=== PATIENT | female | born 1985 | race Hispanic/Latino ===

== ENCOUNTER 2019-06-19 10:22 | Emergency (ER) | payer SELFPAY ==
[~2019-06-19] VITALS: Ht 154.9 cm; Wt 81.8 kg
[~2019-06-19 10:22] MED LIST: CIPROFLOXACN500 MG PO; DOXYCYCL HYC100 MG PO; NO HOME MEDS; PYRIDIUM200 MG PO; TYLENOL # 31 TA1 PO; ULTRAM50 MG PO; UNKNOWN PAIN MED
[2019-06-19 11:15] LABS: URINE BLOOD DIPSTICK TRACE-INTACT (NEGATIVE); URINE COLOR YELLOW; URINE GLUCOSE - DIPSTICK NEGATIVE (NEGATIVE); URINE KETONE TRACE mg/dL (NEGATIVE); URINE LEUK ESTERASE NEGATIVE (NEGATIVE); URINE NITRITE - DIPSTICK NEGATIVE (Negative); URINE PH 5.5 (4.5-8.0); URINE PROTEIN - DIPSTICK TRACE mg/dL (NEG-TRACE); URINE SPECIFIC GRAVITY >=1.030; URINE UROBILINOGEN - DIPSTICK 0.2 E.U./dL (0.2)
[2019-06-19 11:18] LABS: HCG SERUM/URINE (NEG/POS) NEGATIVE (NEGATIVE)
[2019-06-19 11:23] LABS: URINE BILIRUBIN - DIPSTICK SMALL (NEGATIVE)
[2019-06-19 11:24] LABS: HEMATOCRIT 37.3 % (37.0-47.0); IMMATURE GRANULOCYTES 0.3 % (0.0-5.0); MEAN CELL VOLUME 91.2 fL CALC (80.0-100.0); MEAN CORPUSCULAR HGB 29.3 pG CALC (26.0-32.0); MEAN CORPUSCULAR HGB CONC 32.2 g/L CALC (32.0-36.0); NEUT# 8.35 thou/uL (2.00-7.15); RED BLOOD COUNT 4.09 mill/uL (4.20-5.60); RED CELL DISTRI WIDTH 12.1 % (11.5-15.5)
[2019-06-19 12:13] LABS: ALKALINE PHOSPHATASE 116 u/l (38-126); ANION GAP 14 (6-22 (CALC)); BILIRUBIN, TOTAL 0.7 mg/dL (0.0-1.4); BUN 14 mg/dL (7-17); BUN/CREATININE RATIO 33 (12-20 (CALC)); CARBON DIOXIDE 25 mmol/l (22-30); CHLORIDE 106 mmol/l (95-108); CREATININE 0.4 mg/dL (0.5-1.0); GFR > 60 ML/MIN (>=60 (CALC)); GFR FOR AFR.AMER. > 60 ML/MIN (>=60 (CALC)); LIPASE 32 u/l (23-300); POTASSIUM 3.7 mmol/l (3.5-5.1); SGOT/AST 37 u/l (14-36); SODIUM 141 mmol/l (137-146); TOTAL PROTEIN 8.8 g/dL (6.3-8.2)
[2019-06-19] MEDS ORDERED: LOMOTIL2.5 MG PO (14:20)
[2019-06-19 14:38] VITALS: BP 113/63
== END 2019-06-19 14:38 | disposition home or self-care (01) | DRG 392 ==
LOC: ED 10:22
DX: R19.7 Diarrhea, unspecified (principal); K62.89 Other specified diseases of anus and rectum; R11.0 Nausea
CPT/HCPCS: G0328

== ENCOUNTER 2019-06-22 13:17 | Emergency (ER) | payer SELFPAY ==
[~2019-06-22] VITALS: Ht 154.9 cm; Wt 75.0 kg
[~2019-06-22 13:17] MED LIST changes: +LOMOTIL2.5 MG PO
[2019-06-22] MEDS ORDERED: FLEXERIL5 MG PO (13:46)
[2019-06-22 15:23] LABS: URINE BILIRUBIN - DIPSTICK NEGATIVE (NEGATIVE); URINE BLOOD DIPSTICK LARGE (NEGATIVE); URINE COLOR RED; URINE GLUCOSE - DIPSTICK NEGATIVE (NEGATIVE); URINE KETONE NEGATIVE (NEGATIVE); URINE LEUK ESTERASE TRACE (NEGATIVE); URINE NITRITE - DIPSTICK NEGATIVE (Negative); URINE PH 7.5 (4.5-8.0); URINE PROTEIN - DIPSTICK 100 mg/dL (NEG-TRACE); URINE UROBILINOGEN - DIPSTICK 0.2 E.U./dL (0.2)
[2019-06-22 15:48] LABS: URINE SQUAMOUS EPITHELIAL CELL MODERATE EPI/hpf (0-FEW)
[2019-06-22] MEDS ORDERED: DIFLUCAN100 M1 PO (16:31)
[2019-06-22 16:35] VITALS: BP 113/75
== END 2019-06-22 16:45 | disposition home or self-care (01) | DRG 759 ==
LOC: ED 13:17
DX: B37.3 Candidiasis of vulva and vagina (principal)

== ENCOUNTER 2020-05-09 17:17 | Emergency (ER) | payer SELFPAY ==
[~2020-05-09] VITALS: Ht 154.9 cm; Wt 82.0 kg
[~2020-05-09 17:17] MED LIST changes: +DIFLUCAN100 M1 PO; +FLEXERIL5 MG PO
[2020-05-09 17:57] LABS: HEMATOCRIT 32.5 % (37.0-47.0); HEMOGLOBIN 10.4 g/dl (12.0-16.0); IMMATURE GRANULOCYTES 0.4 % (0.0-5.0); MEAN CELL VOLUME 89.5 fL CALC (80.0-100.0); MEAN CORPUSCULAR HGB 28.7 pG CALC (26.0-32.0); NEUT# 8.68 thou/uL (2.00-7.15); RED BLOOD COUNT 3.63 mill/uL (4.20-5.60)
[2020-05-09 17:59] LABS: URINE BILIRUBIN - DIPSTICK NEGATIVE (NEGATIVE); URINE BLOOD DIPSTICK NEGATIVE (NEGATIVE); URINE COLOR YELLOW; URINE GLUCOSE - DIPSTICK NEGATIVE (NEGATIVE); URINE KETONE NEGATIVE (NEGATIVE); URINE LEUK ESTERASE NEGATIVE (NEGATIVE); URINE NITRITE - DIPSTICK NEGATIVE (Negative); URINE PH 6.5 (4.5-8.0); URINE PROTEIN - DIPSTICK NEGATIVE (NEG-TRACE); URINE SPECIFIC GRAVITY <=1.005; URINE UROBILINOGEN - DIPSTICK 0.2 E.U./dL (0.2)
[2020-05-09 18:09] LABS: ALBUMIN 4.3 g/dL (3.2-5.0); ALKALINE PHOSPHATASE 135 u/l (38-126); ANION GAP 12 (6-22 (CALC)); BUN 5 mg/dL (7-17); BUN/CREATININE RATIO 13 (12-20 (CALC)); CARBON DIOXIDE 26 mmol/l (22-30); CHLORIDE 104 mmol/l (95-108); CREATININE 0.4 mg/dL (0.5-1.0); GFR > 60 ML/MIN (>=60 (CALC)); GFR FOR AFR.AMER. > 60 ML/MIN (>=60 (CALC)); LIPASE 58 u/l (23-300); POTASSIUM 3.9 mmol/l (3.5-5.1); SGOT/AST 24 u/l (14-36); SODIUM 138 mmol/l (137-146); TOTAL PROTEIN 7.6 g/dL (6.3-8.2)
[2020-05-09 18:10] LABS: BILIRUBIN, TOTAL 0.4 mg/dL (0.0-1.4)
[2020-05-09 19:10] VITALS: BP 122/70
[2020-05-09] MEDS ORDERED: CIPROFLOXACN500 MG PO (19:19)
[2020-05-09] MEDS ORDERED: METRONIDAZOL500 MG PO (19:19)
== END 2020-05-09 19:33 | disposition home or self-care (01) | DRG 392 ==
LOC: ED 17:17
DX: K57.32 Diverticulitis of large intestine without perforation or abscess without bleeding (principal)
CPT/HCPCS: Q9967

== ENCOUNTER 2021-06-17 07:00 | Emergency (ER) | payer SELFPAY ==
[~2021-06-17] VITALS: Ht 154.9 cm; Wt 70.0 kg
[~2021-06-17 07:00] MED LIST changes: +METRONIDAZOL500 MG PO
[2021-06-17 08:10] LABS: IMMATURE GRANULOCYTES 0.1 % (0.0-5.0); MEAN CORPUSCULAR HGB 29.9 pG CALC (26.0-32.0); MEAN CORPUSCULAR HGB CONC 32.4 g/dL CAL (32.0-36.0); NEUT# 5.04 thou/uL (2.00-7.15); RED BLOOD COUNT 4.02 mill/uL (4.20-5.60); RED CELL DISTRI WIDTH 12.5 % (11.5-15.5)
[2021-06-17 08:23] LABS: ALBUMIN 4.3 g/dL (3.2-5.0); ALKALINE PHOSPHATASE 85 u/l (38-126); AMYLASE 46 u/l (30-110); ANION GAP 9 (6-22 (CALC)); BILIRUBIN, TOTAL 0.5 mg/dL (0.0-1.4); BUN 9 mg/dL (7-17); BUN/CREATININE RATIO 17 (12-20 (CALC)); CARBON DIOXIDE 31 mmol/l (22-30); CHLORIDE 102 mmol/l (95-108); CREATININE 0.5 mg/dL (0.5-1.0); GFR > 60 ML/MIN (>=60 (CALC)); GFR FOR AFR.AMER. > 60 ML/MIN (>=60 (CALC)); LIPASE 55 u/l (23-300); POTASSIUM 3.8 mmol/l (3.5-5.1); SGOT/AST 30 u/l (14-36); SODIUM 139 mmol/l (137-146); TOTAL PROTEIN 7.8 g/dL (6.3-8.2)
[2021-06-17 08:55] LABS: URINE BILIRUBIN - DIPSTICK NEGATIVE (NEGATIVE); URINE BLOOD DIPSTICK LARGE (NEGATIVE); URINE COLOR RED; URINE GLUCOSE - DIPSTICK NEGATIVE (NEGATIVE); URINE KETONE NEGATIVE (NEGATIVE); URINE LEUK ESTERASE NEGATIVE (NEGATIVE); URINE PROTEIN - DIPSTICK 30 mg/dL (NEG-TRACE); URINE UROBILINOGEN - DIPSTICK 0.2 E.U./dL (0.2)
[2021-06-17 09:03] LABS: URINE NITRITE - DIPSTICK NEGATIVE (Negative)
[2021-06-17 09:04] LABS: URINE RBC TNTC RBC/hpf (0-5); URINE SQUAMOUS EPITHELIAL CELL FEW EPI/hpf (0-FEW)
[2021-06-17 11:16] VITALS: BP 121/65
== END 2021-06-17 11:21 | disposition home or self-care (01) | DRG 392 ==
LOC: ED 07:00
PROVIDERS: Emergency Medicine
DX: R10.11 Right upper quadrant pain (principal); R10.33 Periumbilical pain; M19.90 Unspecified osteoarthritis, unspecified site; Z90.49 Acquired absence of other specified parts of digestive tract; Z20.822 Contact with and (suspected) exposure to COVID-19
CPT/HCPCS: Q9967

== ENCOUNTER 2021-08-28 07:47 | Day surgery (SDC) | payer SELFPAY ==
[~2021-08-28] VITALS: Ht 154.9 cm; Wt 82.6 kg
[~2021-08-28 07:47] MED LIST changes: +OMEPRAZOLE DR40 MG PO
[2021-08-28 10:10] VITALS: BP 110/65
== END 2021-08-28 10:15 | disposition home or self-care (01) | DRG 446 ==
LOC: ORM 07:47
PROVIDERS: ATTEND Surgery
PROC: 0DB48ZX Excision of Esophagogastric Junction, Via Natural or Artificial Opening Endoscopic, Diagnostic (ICD-10-PCS; principal; 2021-08-28)
DX: K91.5 Postcholecystectomy syndrome (principal); K21.9 Gastro-esophageal reflux disease without esophagitis; Z90.49 Acquired absence of other specified parts of digestive tract

== ENCOUNTER 2021-09-09 06:50 | Emergency (ER) | payer SELFPAY ==
[~2021-09-09] VITALS: Ht 154.9 cm; Wt 82.2 kg
[2021-09-09 07:50] LABS: URINE BILIRUBIN - DIPSTICK NEGATIVE (NEGATIVE); URINE BLOOD DIPSTICK TRACE-INTACT (NEGATIVE); URINE COLOR YELLOW; URINE GLUCOSE - DIPSTICK NEGATIVE (NEGATIVE); URINE KETONE NEGATIVE (NEGATIVE); URINE LEUK ESTERASE NEGATIVE (NEGATIVE); URINE PH 7.5 (4.5-8.0); URINE PROTEIN - DIPSTICK NEGATIVE (NEG-TRACE); URINE UROBILINOGEN - DIPSTICK 0.2 E.U./dL (0.2)
[2021-09-09 07:52] LABS: URINE NITRITE - DIPSTICK NEGATIVE (Negative)
[2021-09-09 07:59] LABS: ALBUMIN 4.5 g/dL (3.2-5.0); ALKALINE PHOSPHATASE 117 u/l (38-126); ANION GAP 14 (6-22 (CALC)); BILIRUBIN, TOTAL 0.6 mg/dL (0.0-1.4); BUN 11 mg/dL (7-17); BUN/CREATININE RATIO 28 (12-20 (CALC)); CARBON DIOXIDE 26 mmol/l (22-30); CHLORIDE 103 mmol/l (95-108); CREATININE 0.4 mg/dL (0.5-1.0); GFR > 60 ML/MIN (>=60 (CALC)); GFR FOR AFR.AMER. > 60 ML/MIN (>=60 (CALC)); LIPASE 75 u/l (23-300); POTASSIUM 3.9 mmol/l (3.5-5.1); SGOT/AST 33 u/l (14-36); SODIUM 139 mmol/l (137-146); TOTAL PROTEIN 8.3 g/dL (6.3-8.2)
[2021-09-09 08:05] LABS: HEMATOCRIT 35.5 % (37.0-47.0); HEMOGLOBIN 11.8 g/dl (12.0-16.0); IMMATURE GRANULOCYTES 0.1 % (0.0-5.0); MEAN CELL VOLUME 90.3 fL CALC (80.0-100.0); MEAN CORPUSCULAR HGB CONC 33.2 g/dL CAL (32.0-36.0); NEUT# 10.61 thou/uL (2.00-7.15); RED BLOOD COUNT 3.93 mill/uL (4.20-5.60); RED CELL DISTRI WIDTH 12.3 % (11.5-15.5)
[2021-09-09] MEDS ORDERED: DOXYCYCL HYC100 M4 PO (08:25)
[2021-09-09] MEDS ORDERED: HYOSCYAMINE0.125 M3 PO (09:08)
[2021-09-09] MEDS ORDERED: ONDANSETRON4 MG PO (09:08)
[2021-09-09 09:50] VITALS: BP 109/51
== END 2021-09-09 09:50 | disposition home or self-care (01) | DRG 392 ==
LOC: ED 06:50
PROVIDERS: Family Medicine
DX: R10.11 Right upper quadrant pain (principal); R10.13 Epigastric pain; N89.8 Other specified noninflammatory disorders of vagina; E66.9 Obesity, unspecified
CPT/HCPCS: Q9967

== ENCOUNTER 2022-01-18 05:10 | Emergency (ER) | payer SELFPAY ==
[~2022-01-18] VITALS: Ht 154.9 cm; Wt 68.0 kg
[~2022-01-18 05:10] MED LIST changes: +DOXYCYCL HYC100 M4 PO; +HYOSCYAMINE0.125 M3 PO; +ONDANSETRON4 MG PO
[2022-01-18 05:58] LABS: HEMATOCRIT 33.4 % (37.0-47.0); HEMOGLOBIN 10.6 g/dl (12.0-16.0); IMMATURE GRANULOCYTES 0.2 % (0.0-5.0); MEAN CELL VOLUME 88.8 fL CALC (80.0-100.0); MEAN CORPUSCULAR HGB 28.2 pG CALC (26.0-32.0); MEAN CORPUSCULAR HGB CONC 31.7 g/dL CAL (32.0-36.0); NEUT# 6.2 thou/uL (2.00-7.15); RED BLOOD COUNT 3.76 mill/uL (4.20-5.60); RED CELL DISTRI WIDTH 14.1 % (11.5-15.5)
[2022-01-18 06:03] LABS: HCG SERUM/URINE (NEG/POS) NEGATIVE (NEGATIVE)
[2022-01-18 06:08] LABS: ALBUMIN 4.6 g/dL (3.2-5.0); ALKALINE PHOSPHATASE 97 u/l (38-126); AMYLASE 60 u/l (30-110); ANION GAP 15 (6-22 (CALC)); BILIRUBIN, TOTAL 0.5 mg/dL (0.0-1.4); BUN 11 mg/dL (7-17); BUN/CREATININE RATIO 24 (12-20 (CALC)); CARBON DIOXIDE 24 mmol/l (22-30); CHLORIDE 103 mmol/l (95-108); CREATININE 0.4 mg/dL (0.5-1.0); GFR > 60 ML/MIN (>=60 (CALC)); GFR FOR AFR.AMER. > 60 ML/MIN (>=60 (CALC)); LIPASE 50 u/l (23-300); POTASSIUM 3.6 mmol/l (3.5-5.1); SGOT/AST 31 u/l (14-36); SODIUM 139 mmol/l (137-146); TOTAL PROTEIN 8.5 g/dL (6.3-8.2)
[2022-01-18 06:28] LABS: URINE BILIRUBIN - DIPSTICK NEGATIVE (NEGATIVE); URINE BLOOD DIPSTICK TRACE-INTACT (NEGATIVE); URINE COLOR YELLOW; URINE GLUCOSE - DIPSTICK NEGATIVE (NEGATIVE); URINE KETONE NEGATIVE (NEGATIVE); URINE LEUK ESTERASE NEGATIVE (NEGATIVE); URINE PROTEIN - DIPSTICK NEGATIVE (NEG-TRACE); URINE SPECIFIC GRAVITY <=1.005; URINE UROBILINOGEN - DIPSTICK 0.2 E.U./dL (0.2)
[2022-01-18 06:31] LABS: URINE NITRITE - DIPSTICK NEGATIVE (Negative)
[2022-01-18] MEDS ORDERED: ONDANSETRON4 MG PO (07:04)
[2022-01-18] MEDS ORDERED: PREVACID30 M3 PO (07:04)
[2022-01-18] MEDS ORDERED: ULTRAM50 M1 PO (07:04)
[2022-01-18 07:57] VITALS: BP 158/99
== END 2022-01-18 08:05 | disposition home or self-care (01) | DRG 392 ==
LOC: ED 05:10
PROVIDERS: Emergency Medicine
DX: K29.70 Gastritis, unspecified, without bleeding (principal); Z20.822 Contact with and (suspected) exposure to COVID-19
CPT/HCPCS: Q9967

== ENCOUNTER 2023-11-10 22:25 | Emergency (ER) | payer SELFPAY ==
[~2023-11-10] VITALS: Ht 154.9 cm; Wt 91.0 kg
[~2023-11-10 22:25] MED LIST changes: +PREVACID30 M3 PO; +ULTRAM50 M1 PO
[2023-11-10 22:46] VITALS: BP 142/89
[2023-11-10 23:00] VITALS: BP 136/75
[2023-11-10 23:02] LABS: BASO% 0.4 % (0-3); EOS% 2.6 % (0-8); HEMATOCRIT 38.1 % (37.0-47.0); IMMATURE GRANULOCYTES 0.3 % (0.0-5.0); LYMPH% 36.8 % (15-41); MEAN CORPUSCULAR HGB 31.2 pG CALC (26.0-32.0); MEAN CORPUSCULAR HGB CONC 33.1 g/dL CAL (32.0-36.0); MONO% 7.7 % (2-13); NEUT# 5.06 thou/uL (2.00-7.15); NEUT% 52.2 % (42-76); RED BLOOD COUNT 4.04 mill/uL (4.20-5.60); RED CELL DISTRI WIDTH 11.5 % (11.5-15.5)
[2023-11-10 23:04] LABS: HEMOGLOBIN 12.6 g/dl (12.0-16.0); MEAN CELL VOLUME 94.3 fL CALC (80.0-100.0)
[2023-11-10 23:08] LABS: URINE BILIRUBIN - DIPSTICK Negative (NEGATIVE); URINE BLOOD DIPSTICK Large (NEGATIVE); URINE GLUCOSE - DIPSTICK Negative (NEGATIVE); URINE LEUK ESTERASE Negative (NEGATIVE); URINE NITRITE - DIPSTICK Negative (Negative); URINE PROTEIN - DIPSTICK Negative (NEG-TRACE); URINE SPECIFIC GRAVITY 1.015; URINE UROBILINOGEN - DIPSTICK 0.2 E.U./dL (0.2)
[2023-11-10 23:20] LABS: URINE COLOR Yellow
[2023-11-10 23:21] LABS: URINE KETONE Negative (NEGATIVE)
[2023-11-10 23:22] LABS: URINE BACTERIA FEW hpf; URINE EPITHELIAL CELLS MODERATE EPI/hpf (0-FEW)
[2023-11-10 23:41] LABS: ALBUMIN 4.5 g/dL (3.2-5.0); ALKALINE PHOSPHATASE 114 u/l (38-126); BILIRUBIN, TOTAL 0.3 mg/dL (0.02-1.3); BUN 12 mg/dL (7-17); BUN/CREATININE RATIO 23 (12-20 (CALC)); CARBON DIOXIDE 28 mmol/l (22-30); CHLORIDE 105 mmol/l (95-108); CREATININE 0.5 mg/dL (0.5-1.0); GFR FOR AFR.AMER. > 60 ML/MIN (>=60 (CALC)); GFR OTHER RACES > 60 ML/MIN (>=60 (CALC)); SGOT/AST 26 u/l (14-36); SODIUM 140 mmol/l (137-146); TOTAL PROTEIN 7.6 g/dL (6.3-8.2)
[2023-11-10 23:50] LABS: ANION GAP 11 (6-22 (CALC))
[2023-11-10 23:52] LABS: POTASSIUM 4.4 mmol/l (3.5-5.1)
[2023-11-11 00:21] LABS: BETA-HCG, QUANT(RESULT NUMBER) 21 mIU/mL
[2023-11-11 01:00] VITALS: BP 125/76
== END 2023-11-11 01:10 | disposition home or self-care (01) | DRG 833 ==
LOC: ED 22:25
PROVIDERS: Family Medicine
DX: O46.91 Antepartum hemorrhage, unspecified, first trimester (principal); O09.521 Supervision of elderly multigravida, first trimester; Z3A.00 Weeks of gestation of pregnancy not specified